=== PATIENT | male | born 1970 | race Caucasian/White ===

== ENCOUNTER 2017-04-21 08:56 | Day surgery (SDC) | payer OTHER ==
[2017-04-21 09:44] VITALS: RESP 18; O2SAT 99
[2017-04-21] MEDS ORDERED: Lidocaine 1%/Epinephrine 1:100000 30 ml vial IJ ONE (10:00)
[2017-04-21] MEDS ORDERED: Bupivacaine 0.5% Inj(30mL) ONE (10:36)
--- NOTE | 2017-04-21 11:52 | PCM.SURG1 ---
Surgeon's Initial Post Op Note - Surgeon's Notes Surgeon: Pool Porter Bath: [id number] Type of Anesthesia: Local Pre-Operative Diagnosis: Neck mass and L chest mass Operative Findings: Sebaceous cyst of neck and lipoma of L chest Post-Operative Diagnosis: Sebaceous cyst of neck and lipoma of L chest Operation Performed: Excision of Sebaceous cyst of neck. Excision of Lipoma of L chest Specimen/Specimens Removed: Sebaceous cyst of neck and lipoma of L chest Estimated Blood Loss: EBL {In ML}: 5 Blood Products Given: N/A Drains Used: No Drains Post-Op Condition: Good Date of Surgery/Procedure: 04/21/17 Time of Surgery/Procedure: 10:30
[2017-04-21 12:11] VITALS: BP 111/73; PULSE 61; TEMP 97.6
--- NOTE | 2017-04-21 21:25 | OP ---
PROCEDURE DATE: 04/21/2017 PREOPERATIVE DIAGNOSIS: Mass effect in anterior chest wall. 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 FINDINGS: There is a 3 x 3-cm mass located in the mid back area close to the base of the spine. There is also a soft tissue mass located in the anterior chest wall, more on to the left side, consistent with a lipoma. The first lesion was an enlarged sebaceous cyst. DESCRIPTION OF PROCEDURE: Under local anesthesia, utilizing lidocaine 2% with epinephrine, patient was placed in a prone position. Incision was made over the mass and extended down to the capsule. A sharp dissection was carried out to excise the mass. Bleeding was controlled with electrocautery and the wound was then closed in layers, obliterating all the space with sutures of 3-0 Vicryl and the skin was closed with subcuticular suture of 4-0 Monocryl. Attention was then focused on the anterior chest wall mass where a similar injection of local anesthetic was given. The incision was made down to the capsule and the mass was then bluntly dissected and the mass was then excised. Bleeding was controlled with electrocautery and the wound was then closed in layers with interrupted sutures of 3-0 Vicryl, aided with Dermabond. Estimated blood loss for the entire procedure was 2 mL. No complications. Tu Lanza MD
== END 2017-04-21 12:06 | disposition home or self-care (01) ==
LOC: C.SDS 08:56
PROVIDERS: ATTEND Surgery
DX: D49.2 Neoplasm of unspecified behavior of bone, soft tissue, and skin (principal); L72.3 Sebaceous cyst; D17.1 Benign lipomatous neoplasm of skin and subcutaneous tissue of trunk; L72.0 Epidermal cyst